=== PATIENT | male | born 1945 | race Caucasian/White ===

== ENCOUNTER → 2016-05-10 | Outpatient (CLI) | payer OTHER ==
[~2016-05-10] MED LIST: 'PARAFON FORTE500 M1 PO; ATIVAN PO; CHLORDIAZEPOXID25 M1 PO; CITALOPRAM HYDR20 MG PO; CLOTRIM ANTIFUNGAL1% T; Coumadin7.5 MG PO; D-1000 185 MG-11 TAB PO; DULCOLAX10 M1 RC; ENOXAPARIN80 MG/0.2 SC; EXELON4.6 MG/24 T; FENOFIBRATE145 M1 PO; HALOPERIDOL L2 MG/ML PEG; HYDROCODONE BIT1 T11 PO; HYDROXYZINE PAM25 M1 PO; Haldol Concen2 MG/ML IM; KEFLEX500 MG PO; KLOR-CON M1010 ME1 PO; LISINOPRIL20 MG PEG; LISINOPRIL20 MG PO; MELATONIN5 M1 PO; MELATONIN5 M7 PEG; METOPROLOL TART50 M1 PEG; METOPROLOL25 MG PO; MILK OF MA400 MG/5 M PO; MILK OF MA400 MG/52 PO; MIRALAX POWDER255 G1 PO; MOBIC7.5 MG PO; MOM30 M1 PO; MUCINEX ER600 MG PO; MULTI VITAMINS1 TAB PO; NAMENDA-5 PO; NAPROSYN500 MG PO; NAPROXEN375 MG PO; NATURE'S BLEND F1 MG PEG; NOVAPLUS LORA2 MG/ML IV; NYSTATIN1 EAC3 T; OMEPRAZOLE D/R20 MG PO; PROTONIX40 M1 PEG; QUETIAPINE FUM100 M3 PO; QUETIAPINE FUMA50 M1 PO; RISPERDAL0.5 MG PO; SENNA8.6 MG PO; THIAMINE HCL100 MG PO; TYLENOL325 M1 PO; VICODIN 500 MG-1 TAB PO; XARELTO15 M1 PEG; ZANTAC 300300 MG PO
== END | disposition home or self-care (01) ==
LOC: ORTHO 05:02
DX: M19.012 Primary osteoarthritis, left shoulder (principal); M25.512 Pain in left shoulder; Z91.81 History of falling

== ENCOUNTER → 2016-06-22 | Outpatient (CLI) | payer OTHER | END | disposition home or self-care (01) | LOC: RESCLI 09:34 | DX: I10 Essential (primary) hypertension (principal); F41.9 Anxiety disorder, unspecified; Z86.711 Personal history of pulmonary embolism ==

== ENCOUNTER → 2016-09-06 | Outpatient (CLI) | payer OTHER | END | disposition home or self-care (01) | LOC: RESCLI 02:19 | DX: I10 Essential (primary) hypertension (principal); F41.9 Anxiety disorder, unspecified; E78.5 Hyperlipidemia, unspecified; D64.9 Anemia, unspecified; Z88.6 Allergy status to analgesic agent; Z86.711 Personal history of pulmonary embolism ==

== ENCOUNTER → 2016-09-07 | Outpatient (CLI) | payer OTHER ==
[2016-09-07 09:29] LABS: BASO % 0.6 % (0.0-1.0); EOS # 0.1 10*3/uL (0.0-0.4); EOS % 2.4 % (1.0-4.0); HEMOGLOBIN 14.7 g/dl (14.0-18.0); LYMPH % 20.6 % (27.0-41.0); MEAN CELL VOLUME 96.4 fl (80.0-94.0); MEAN CORPUSCULAR HGB CONC 34.2 g/dl (33.0-37.0); MEAN PLATELET VOLUME 9.4 fl (9.6-12.3); MONO # 0.5 10*3/uL (0.1-1.0); MONO % 10.9 % (3.0-9.0); NEUT % 65.1 % (47.0-73.0); PLATELET COUNT AUTOMATED 166 10*3/uL (130-400); RED BLOOD COUNT 4.46 10*6/uL (4.50-5.90); RED CELL DISTRI WIDTH 13.3 % (0-14.5); WHITE BLOOD COUNT 4.7 10*3/uL (4.8-10.8)
[2016-09-07 09:52] LABS: BUN 8 mg/dl (7-24); CARBON DIOXIDE 23 mmol/L (21-32); CHLORIDE 109 mmol/L (98-107); EST GLOM FILT AFRICAN AMERICAN > 60 ml/min; GLUCOSE 93 mg/dL (65-99); POTASSIUM 3.9 mmol/L (3.5-5.1); SODIUM 142 mmol/L (136-145)
[2016-09-07 10:04] LABS: INTERNATIONAL NORM RATIO 0.9 (2.0-3.5); PROTHROMBIN TIME 9.3 SECONDS (9.0-12.4)
== END | disposition home or self-care (01) ==
LOC: LAB 08:50
PROVIDERS: Hospitalist
DX: Z01.818 Encounter for other preprocedural examination (principal); I10 Essential (primary) hypertension; F41.9 Anxiety disorder, unspecified; Z79.899 Other long term (current) drug therapy; Z86.711 Personal history of pulmonary embolism

== ENCOUNTER → 2016-09-16 | Day surgery (SDC) | payer OTHER ==
[2016-09-16] VITALS (12 sets, daily range): BP systolic 125–173; BP diastolic 71–94
== END | disposition home or self-care (01) ==
LOC: SDC 03:09
DX: Z45.2 Encounter for adjustment and management of vascular access device (principal); I10 Essential (primary) hypertension; F10.239 Alcohol dependence with withdrawal, unspecified; Z86.718 Personal history of other venous thrombosis and embolism; Z86.711 Personal history of pulmonary embolism; E78.5 Hyperlipidemia, unspecified; F06.31 Mood disorder due to known physiological condition with depressive features; G47.00 Insomnia, unspecified; Z88.8 Allergy status to other drugs, medicaments and biological substances; Z79.899 Other long term (current) drug therapy; Z79.84 Long term (current) use of oral hypoglycemic drugs; F41.9 Anxiety disorder, unspecified; K21.9 Gastro-esophageal reflux disease without esophagitis; D64.89 Other specified anemias; Z86.14 Personal history of Methicillin resistant Staphylococcus aureus infection; Z87.891 Personal history of nicotine dependence

== ENCOUNTER 2017-04-08 10:09 | Emergency (ER) | payer OTHER ==
[~2017-04-08] VITALS: Ht 180.3 cm; Wt 95.3 kg
[2017-04-08 11:19] LABS: BASO % 0.7 % (0.0-1.0); EOS # 0.1 10*3/uL (0.0-0.4); EOS % 2.6 % (1.0-4.0); HEMATOCRIT 50.3 % (42.0-52.0); HEMOGLOBIN 16.9 g/dl (14.0-18.0); LYMPH # 1.1 10*3/uL (1.3-4.4); LYMPH % 19.6 % (27.0-41.0); MEAN CELL VOLUME 97.5 fl (80.0-94.0); MEAN CORPUSCULAR HGB 32.8 pg (27.0-31.0); MEAN CORPUSCULAR HGB CONC 33.6 g/dl (33.0-37.0); MEAN PLATELET VOLUME 9.5 fl (9.6-12.3); MONO # 0.6 10*3/uL (0.1-1.0); MONO % 11.4 % (3.0-9.0); NEUT # 3.5 10*3/uL (2.3-7.9); NEUT % 65.3 % (47.0-73.0); PLATELET COUNT AUTOMATED 201 10*3/uL (130-400); RED BLOOD COUNT 5.16 10*6/uL (4.50-5.90); WHITE BLOOD COUNT 5.4 10*3/uL (4.8-10.8)
[2017-04-08 11:29] LABS: INTERNATIONAL NORM RATIO 0.9 (2.0-3.5)
[2017-04-08 11:35] LABS: ALBUMIN 4.2 gm/dl (3.1-4.5); ALKALINE PHOSPHATASE 87 U/L (45-117); BUN 16 mg/dl (7-24); CHLORIDE 107 mmol/L (98-107); CREATININE 1.24 mg/dL (0.70-1.30); POTASSIUM 4.8 mmol/L (3.5-5.1); SGOT/AST 24 IU/L (3-35); SGPT/ALT 28 U/L (12-78); SODIUM 141 mmol/L (136-145); TOTAL PROTEIN 8.1 gm/dL (6.4-8.2)
[2017-04-08 11:39] LABS: BILIRUBIN 1+ (NEGATIVE); BLOOD NEGATIVE (NEGATIVE); CLARITY CLEAR (CLEAR); COLOR YELLOW (YELLOW); GLUCOSE NEGATIVE (NEGATIVE); KETONE TRACE (NEGATIVE); LEUKO ESTERASE NEGATIVE (NEGATIVE); NITRITE NEGATIVE (NEGATIVE); PH 5.5 (5.0-9.0); SPECIFIC GRAVITY 1.025 (1.005-1.030)
[2017-04-08 11:45] LABS: MUCOUS TRACE; RBC 0-2 rbc/hpf (0-2); WBC 0-2 wbc/hpf (0-5)
[2017-04-08 12:20] VITALS: BP 138/90
== END 2017-04-08 23:28 ==
LOC: ED 10:09
PROVIDERS: Emergency Medicine
DX: R41.0 Disorientation, unspecified (principal); E78.5 Hyperlipidemia, unspecified; K21.9 Gastro-esophageal reflux disease without esophagitis; I10 Essential (primary) hypertension; Z86.711 Personal history of pulmonary embolism; Z98.890 Other specified postprocedural states; Z86.718 Personal history of other venous thrombosis and embolism; Z79.899 Other long term (current) drug therapy

== ENCOUNTER → 2017-04-11 | Outpatient (CLI) | payer OTHER ==
[2017-04-11 11:00] LABS: ALBUMIN 3.9 gm/dl (3.1-4.5); ALKALINE PHOSPHATASE 71 U/L (45-117); BUN 10 mg/dl (7-24); CHLORIDE 105 mmol/L (98-107); CREATININE 1.07 mg/dL (0.70-1.30); POTASSIUM 4.2 mmol/L (3.5-5.1); SGOT/AST 25 IU/L (3-35); SGPT/ALT 31 U/L (12-78); SODIUM 138 mmol/L (136-145); TOTAL PROTEIN 7.7 gm/dL (6.4-8.2)
== END | disposition home or self-care (01) ==
LOC: LAB 10:05
DX: I10 Essential (primary) hypertension (principal); G91.9 Hydrocephalus, unspecified; R41.0 Disorientation, unspecified

== ENCOUNTER 2018-03-10 16:56 | Inpatient (IN) | payer OTHER ==
[~2018-03-10] VITALS: Ht 180.3 cm; Wt 97.5 kg
--- NOTE | ~2018-03-10 | PR ---
[place], [place] PROGRESS NOTE NAME: SIDRA SANCHEZ UNIT #: [id number] ROOM: 315 DOCTOR: ISIAH HESS CNP BIRTHDATE: [birth year] DOS: 03/19/2018 CHIEF COMPLAINT: "I'm doing good." SUMMARY OF VISIT: The patient was interviewed as he sat in the dining room, eating his lunch. He engaged readily in conversation with me. He reports that his appetite has been good and that he has been sleeping well. He denies feeling anxious or agitated. Staff reports that the patient has been pleasant and cooperative for the most part. He does become irritable with his peers at times. Staff reports that he does continue to display some confusion at times. MENTAL STATUS EXAMINATION: The patient is alert and oriented to person and place. He was pleasant and cooperative with me. No heather or hypomania noted. No delusions or paranoia noted. No psychotic symptoms noted. No auditory or visual hallucinations noted. Mood was calm. Affect congruent with mood. No lethargy noted. PLAN: Continue the patient's medications as prescribed. He appears to be tolerating them without any side effects. Continue to encourage the patient to engage in individual and gutierrez milieu activity. Continue fall and safety precautions. Plan to return the patient to the least restrictive environment once considered psychiatrically stable. Isiah Hess CNP CM:PNTRANS [phone] 0 ISIAH HESS CNP 03/20/18210 interface
--- NOTE | ~2018-03-10 | PR ---
[place], [place] PROGRESS NOTE NAME: [id number] UNIT #: [id number] ROOM: 315 DOCTOR: JAGUAR FERNANDEZ MD BIRTHDATE: [birth year] DOS: 03/21/2018 CHIEF COMPLAINT: "I am okay, that sounds like a good plan to me. SUMMARY OF THE VISIT: The patient was interviewed as he was sitting in the dining area, eating his breakfast. He stopped and engaged in pleasant conversation. He noted no issues and states he is fine waiting until in order to leave directly from here to go to see the neurosurgeon in [place]. Nurses report, however, as the day progresses, he does get somewhat antsy and is somewhat exit seeking and has made motion towards the door. He does respond to firm redirection. MENTAL STATUS: He is alert and oriented with significant time gaps. Mood is fairly euthymic. Affect appropriate. There is no heather, hypomania or psychosis. Short term memory continues to have significant gaps. PLAN: I will maintain his current psychotropic regimen that includes Exelon patch, which is maximized out at 13.3 mg daily and Namenda at 10 mg twice daily. We will continue to engage in individual and gutierrez milieu activity, returning to the least restrictive environment when psychiatrically stable. JAGUAR FERNANDEZ MD CM:PNTRANS [id number] JAGUAR FERNANDEZ MD 03/21/18 1031 interface
--- NOTE | ~2018-03-10 | PR ---
[place], [place] PROGRESS NOTE NAME: [id number] UNIT #: [id number] ROOM: 315 DOCTOR: PHD ROMMEL MANZANARES BIRTHDATE: [birth year] DOS: 03/14/2018 I met with the patient to follow up to determine the necessity of guardianship versus power of claims attorney. The patient appears to be less confused than he was yesterday. He was oriented to person, place and generally to time. He was able to name the president and current events he had recently read in the newspaper. His mood was stable and affect was tearful at times. He denied suicidal or homicidal ideation. Dr. Thiago Barlow and the patient's close friend, Tony were present and discussed the need to establish financial power of claims attorney and healthcare power of claims attorney. The patient is agreeable to have his close friend, Tony, be his financial power of claims attorney and his cousin, Madhu, be his healthcare power of claims attorney, and the patient appears to be competent to make this decision at this time. He will follow up with [facility] neurosurgeon, Dr. Henderson to adjust his shunt for normal pressure hydrocephalus next week. After he had his shunt adjusted in the past, he demonstrated significant cognitive improvement. Magdalena Manzanares, PhD CM:PNTRANS [phone] PHD ROMMEL MANZANARES 03/15/18 0422 interface
--- NOTE | ~2018-03-10 | PR ---
[place], [place] PROGRESS NOTE NAME: [facility]Z [id number] UNIT #: [id number] ROOM: 315 DOCTOR: JAGUAR FERNANDEZ MD BIRTHDATE: [birth year] DOS: 03/22/2018 CHIEF COMPLAINT: "Good morning." SUMMARY OF THE VISIT: The patient was interviewed as he was finishing his breakfast. He engaged readily in conversation. He was bright and pleasant. There was no agitation or aggression. I did reiterate him the plan was to discharge him tomorrow morning so that he can go to [facility] to see the neurosurgeon to evaluate his DATABASE DESIGN ANALYST shunt for his normal pressure hydrocephalus. He nodded in approval. Nurses report some episodes of worsening confusion and exit seeking, but he is for the most part redirectable. MENTAL STATUS: He is alert and oriented with time gaps. Mood does seem to be strongly trending towards euthymia. Affect is more appropriate. There is no symptom suggestive of hypomania or heather. There are no gross psychotic symptoms. He does have gaps in short term memory. PLAN: I will maintain his current psychotropic regimen. The plan as listed above is to discharge tomorrow to go to [facility] to see the neurosurgeon to evaluate his DATABASE DESIGN ANALYST shunt and determine further treatment options if needed. JAGUAR FERNANDEZ MD CM:PNTRANS [phone] JAGUAR FERNANDEZ MD 03/22/18 1402 interface
--- NOTE | ~2018-03-10 | CON ---
[place], [place] REPORT OF CONSULTATION NAME: [facility]IDRA SANCHEZ [facility] [id number] UNIT #: [id number] ROOM: 315 DOCTOR: PHD ROMMEL MANZANARES BIRTHDATE: [birth year] DOS: 03/13/2018 HISTORY OF PRESENT ILLNESS: The patient is a 72-year-old male referred by Dr. Farr for competency evaluation. The patient is presently on the [facility] at [facility]. The patient lives alone, is and has children with whom he has little contact. He is retired and has a history of alcohol abuse. He was also found to have positive drug screen for cannabis on admission. The patient is a poor historian. PAST MEDICAL HISTORY: Alcohol abuse, DVT, dyslipidemia, GERD, hypertension, hydrocephalus, hypokalemia, anemia, metabolic encephalopathy, pulmonary embolism. MEDICATIONS: Remeron, Namenda, Exelon, Flonase, Zyrtec, vitamin D, Geodon, Tylenol, Ativan. PHYSICAL EXAMINATION: NEUROLOGIC: The patient was awake, alert and oriented to person. He stated the year was 2014. The patient has a history of normal pressure hydrocephalus with shunt placement after he was treated for NPH in the past. His cognition improved greatly, although he still struggles with his short-term memory. He lives alone and had home health care set up through [facility], although the patient spent most of his time in [place] with his significant other and he subsequently had not received any services. When he spends time with his girlfriend, he tends to drink more frequently. He has a history of drinking at least 12 pack of beer with at least a pint of vodka every day. His current alcohol consumption is not known at this time. He does not have a healthcare power of assistant prosecuting attorney. The patient was pleasant and cooperative and appeared confused, given his history of normal pressure hydrocephalus and acute episodes of confusion. Determination of guardianship versus power of assistant prosecuting attorney may be deferred to allow for continued treatment. Discussed the case with Dr. Tony Barlow as well as the patient's close friend who has been involved with the patient's care. The patient has a cousin in [place] who may be able to serve as a power of assistant prosecuting attorney should that would be an appropriate option for the patient. DIAGNOSIS: Unspecified neurocognitive disorder. PLAN: I will continue to follow the patient to assess the need for guardianship versus power of assistant prosecuting attorney. [place], [place] REPORT OF CONSULTATION NAME: KENDRICK SANCHEZKash Contreras UNIT #: [id number] ROOM: [facility] DOCTOR: RUTH, PHD ROMMEL BIRTHDATE: [birth year] Magdalena Manzanares, PhD CM:CONSTR:REPORT OF CONSULTATION 1725 03/14/18 0459 interface
--- NOTE | ~2018-03-10 | PR ---
[place], [place] PROGRESS NOTE NAME: SIDRA SANCHEZ UNIT #: [id number] ROOM: 315 DOCTOR: JAGUAR FERNANDEZ MD BIRTHDATE: [birth year] DOS: 03/14/2018 INTERVAL NOTE CHIEF COMPLAINT: "Yeah, I'm feeling a little better." SUMMARY OF THE VISIT: The patient was interviewed as he was sitting finishing his breakfast. He engaged readily in superficial conversation. He could not tell me how long he had been here nor could he remember what he had eaten, although he did remember having a conversation with Dr. Barlow and myself yesterday. He is rather perplexed and bewildered at times, but for the most part pleasantly so. He voiced no complaint. MENTAL STATUS EXAMINATION: He is alert and oriented to person, possibly place, not to time. Mood does seem to be trending towards euthymia. Affect is more appropriate. There is no heather, hypomania or psychosis. Short-term memory continues to be problematic. PLAN: I will maximize out the dose of Exelon patch, bringing it to 13.3 mg a day, maintain his current psychotropic regimens, engage in individual and gutierrez milieu activity, returning to the least restrictive environment when psychiatrically stable. JAGUAR FERNANDEZ MD CM:PNTRANS [id number] JAGUAR FERNANDEZ MD 03/15/18 0051 interface
--- NOTE | ~2018-03-10 | PR ---
[place], [place] PROGRESS NOTE NAME: SIDRA SANCHEZ UNIT #: [id number] ROOM: 315 DOCTOR: JAGUAR FERNANDEZ MD BIRTHDATE: [birth year] DOS: 03/13/2018 CHIEF COMPLAINT: "I have a horrible cold." SUMMARY OF THE VISIT: The patient was interviewed as he was lying in bed. He was awake and did engage in conversation. Some of it rather disjointed and fragmented at times nonsensical responses. There does seem to be somewhat of an air of depression about him that could be contributing to his cognitive decline. MENTAL STATUS: He is alert and oriented to person, possibly place, not time. Mood does seem to be somewhat down and depressed, mildly flat and blunted. There is no heather or hypomania. There is no gross psychosis. Short term memory is poor. PLAN: I will go ahead and maximize out the dose of Namenda bringing it to 10 mg b.i.d. Maintain current dose of Exelon patch. I will add Remeron 15 mg at bedtime in an effort to combat any depressive symptomatology and monitor for risk, benefits, engage in individual and gutierrez milieu activity, returning to the least restrictive environment when psychiatrically stable. JAGUAR FERNANDEZ MD CM:PNTRANS [id number] JAGUAR FERNANDEZ MD 03/13/18 1221 interface
--- NOTE | ~2018-03-10 | PR ---
[place], [place] PROGRESS NOTE NAME: [id number] UNIT #: [id number] ROOM: 315 DOCTOR: JAGUAR FERNANDEZ MD BIRTHDATE: [birth year] DOS: 03/20/2018 CHIEF COMPLAINT: "Thank you for stopping." SUMMARY OF THE VISIT: The patient was interviewed as he was eating his breakfast. He stopped, shook my hand and engaged readily in conversation. I did report to him what the plan was and that he would be discharged soon and that Tony Barlow along with his other friend were going to accompany him to [place] to see the neurosurgeon. He nodded in approval and thanked me once again. He was not agitated or aggressive. He was pleasant and cooperative. He was tolerating the current medication regimen well. MENTAL STATUS: He is alert and oriented with significant time gaps. Mood does seem to be strongly trending towards euthymia. Affect is more appropriate. There is no heather, hypomania or psychosis. Short term memory continues to have gaps, otherwise he is intact. PLAN: I will maintain his current psychotropic regimen, continue to engage in individual and gutierrez milieu activity with the ultimate plan to return to the least restrictive environment when psychiatrically stable. JAGUAR FERNANDEZ MD CM:PNTRANS [phone] JAGUAR FERNANDEZ MD 03/20/18 1232 interface
--- NOTE | ~2018-03-10 | PR ---
[place], [place] PROGRESS NOTE NAME: [facility]ANC[facility]Z [id number] UNIT #: [id number] ROOM: 315 DOCTOR: JAGUAR FERNANDEZ MD BIRTHDATE: [birth year] DOS: 03/16/2018 INTERVAL NOTE CHIEF COMPLAINT: "I am waiting to go to [place], so I can see the neurosurgeon." SUMMARY OF THE VISIT: The patient was interviewed as he was sitting eating his breakfast. He stopped and engaged readily in conversation. He remains pleasantly confused. He did have some issues with sleep last night. MENTAL STATUS: He is alert and oriented to person, place, but not necessarily time. Mood does seem to be still somewhat depressed and he is flat and blunted, but he does brighten upon approach. There is no hypomania or heather. There is no gross psychosis. Short-term memory has gaps. PLAN: I will go ahead and increase his Remeron from 15 to 30 mg at bedtime. Continue to monitor for risks and benefits, continue to engage in individual and gutierrez milieu activity, return then to the least restrictive environment when psychiatrically stable. JAGUAR FERNANDEZ MD CM:PNTRANS [id number] JAGUAR FERNANDEZ MD 03/16/18 1200 interface
--- NOTE | ~2018-03-10 | DS ---
[place], [place] DISCHARGE SUMMARY NAME: SIDRA SANCHEZ UNIT #: [id number] ROOM: 315 DOCTOR: JAGUAR FERNANDEZ MD BIRTHDATE: [birth year] DOS: 03/23/2018 CHIEF COMPLAINT: "I am not going through all those questions again." HISTORY OF PRESENT ILLNESS: This is a 72-year-old white male who is admitted to the [facility] due to increased psychosis and confusion. The patient was found wandering around the hospital the day prior to his admission. He was sent to the Emergency Room by one of the residents and they found him to be increasingly confused and disjointed. He was not able to answer simple questions. He was not attending to his ADLs and it was felt that an inpatient stabilization was warranted at this time. SUMMARY OF HOSPITAL COURSE: The patient was admitted to the unit where he was started on the combination of Exelon and Namenda in order to impact positively on his mental status additionally because he had some depressive symptomatology with poor sleep and appetite and poor ADLs. He was started on Remeron 15 mg at bedtime, which was later increased to 30. It came to be known that the patient who does have normal pressure hydrocephalus and does have a RESTAURANT AREA MANAGER shunt in place, had not gone for followup for the last year and a half. Given the fact that he had some gait issues, increased confusion and incontinence, it was felt that more than likely his shunt has been malfunctioning and not working right, so his neurosurgeon at [facility] in [place] was contacted and the patient was discharged from the hospital to have that appointment with the neurosurgeon. MENTAL STATUS: At the time of discharge, the patient is alert and oriented to person, place, but not time. Mood was strongly trending towards euthymia. Affect was much more appropriate. There was no heather, hypomania or psychosis. He did have short term memory gaps. FINAL DIAGNOSES: Major depression, recurrent; and dementia, not otherwise specified. PLAN: His prescriptions have been E-scribed to [facility]. At the time of discharge, he was psychiatrically and medically stable. [place], [place] DISCHARGE SUMMARY NAME: SIDRA SANCHEZ UNIT #: [id number] ROOM: 315 DOCTOR: JAGUAR FERNANDEZ MDTE: [birth year] JAGUAR FERNANDEZ MD CM:THOMAS 11 JAGUAR FERNANDEZ MD 03/23/18 131 interface
--- NOTE | ~2018-03-10 | PR ---
[place], [place] PROGRESS NOTE NAME: [id number] UNIT #: [id number] ROOM: 315 DOCTOR: ISIAH HESS CNP BIRTHDATE: [birth year] DOS: 03/18/2018 CHIEF COMPLAINT: "I have a shunt in my head that moved." SUMMARY OF THE VISIT: The patient was interviewed as he sat in the dining room after breakfast. He engaged readily in conversation with me. He reports that he is to go to [place] sometime next week for reevaluation of his shunt. He reports that he has been sleeping well and that his appetite has been good. The staff reports that the patient has had some confusion and confabulates at times. MENTAL STATUS EXAMINATION: The patient was alert and oriented to person and place; however, he was not oriented to time. He was pleasant and cooperative with me. No heather or hypomania noted. No delusions or paranoia noted. No psychotic symptoms noted. No auditory or visual hallucinations noted. His mood appeared to be euthymic and affect congruent with mood. No agitation or aggression noted. PLAN: We will continue the patient's medications as prescribed at this time as he seems to be tolerating medications without any side effects. We will continue to encourage the patient to engage in individual and gutierrez milieu activity. Continue fall and safety precautions. Plan to return the patient to the least restrictive environment once he is considered psychiatrically stable. Isiah Hess CNP CM:PNTRANS 31 [phone] ISIAH HESS CNP 03/18/181947 interface
--- NOTE | ~2018-03-10 | PR ---
[place], [place] PROGRESS NOTE NAME: SIDRA SANCHEZ UNIT #: [id number] ROOM: 315 DOCTOR: JAGAUR FERNANDEZ MD BIRTHDATE: [birth year] DOS: 03/15/2018 CHIEF COMPLAINT: "I am feeling better, I just need this shunt checked." SUMMARY OF THE VISIT: The patient was interviewed after he had already eaten his breakfast. He engaged readily in conversation. He was fairly bright and pleasant upon approach. He did voice concern about his shunt and is worried that there might be something wrong with it that is also leading to some of his confusion. Otherwise, he was bright and pleasant. He did agree to sign in stating he wants to get well and wants to get the help he needs to continue to be happy. MENTAL STATUS: He is alert and oriented with time gaps. Mood does seem to be trending towards euthymia. Affect is more appropriate. There is no heather, hypomania or psychosis. Short term memory continues to be problematic. PLAN: I will maintain his current psychotropic regimen, continue to engage in individual and gutierrez milieu activity, returning to the least restrictive environment when psychiatrically stable. JAGUAR FERNANDEZ MD CM:PNTRANS 1018 1154 JAGUAR FERNANDEZ MD 03/15/18 1155 interface
[2018-03-10 17:00] VITALS: BP 160/90
[2018-03-10 17:34] LABS: BILIRUBIN NEGATIVE (NEGATIVE); BLOOD NEGATIVE (NEGATIVE); CLARITY CLEAR (CLEAR); COLOR YELLOW (YELLOW); GLUCOSE NEGATIVE (NEGATIVE); KETONE NEGATIVE (NEGATIVE); LEUKO ESTERASE NEGATIVE (NEGATIVE); NITRITE NEGATIVE (NEGATIVE); SPECIFIC GRAVITY 1.025 (1.005-1.030)
[2018-03-10 17:41] LABS: BASO % 0.5 % (0.0-1.0); EOS # 0.1 10*3/uL (0.0-0.4); EOS % 1.2 % (1.0-4.0); HEMATOCRIT 46.6 % (42.0-52.0); HEMOGLOBIN 15.7 g/dl (14.0-18.0); MEAN CELL VOLUME 99.1 fl (80.0-94.0); MEAN CORPUSCULAR HGB 33.4 pg (27.0-31.0); MEAN CORPUSCULAR HGB CONC 33.7 g/dl (33.0-37.0); MEAN PLATELET VOLUME 9.9 fl (9.6-12.3); MONO % 11.3 % (3.0-9.0); NEUT # 6.3 10*3/uL (2.3-7.9); NEUT % 74.6 % (47.0-73.0); PLATELET COUNT AUTOMATED 184 10*3/uL (130-400); RED CELL DISTRI WIDTH 13.1 % (0-14.5); WHITE BLOOD COUNT 8.4 10*3/uL (4.8-10.8)
[2018-03-10 17:43] LABS: URINE AMPHETAMINES < 1000 (1000ng/ml); URINE BARBITURATES < 200 (200ng/ml); URINE BENZODIAZEPINES < 200 (200ng/ml); URINE CANNABINOIDS (THC) > 50 (50ng/ml); URINE COCAINE < 300 (300ng/ml); URINE METHADONE < 300 (300ng/ml); URINE OPIATES < 300 (300ng/ml)
[2018-03-10 17:49] LABS: URINE PHENCYCLIDINE < 25 (25ng/ml)
[2018-03-10 17:58] LABS: ALBUMIN 3.5 gm/dl (3.1-4.5); ALKALINE PHOSPHATASE 80 U/L (45-117); BUN 11 mg/dl (7-24); CHLORIDE 107 mmol/L (98-107); CREATININE 1.09 mg/dL (0.70-1.30); POTASSIUM 3.7 mmol/L (3.5-5.1); SGOT/AST 16 IU/L (3-35); SGPT/ALT 24 U/L (12-78); SODIUM 141 mmol/L (136-145); TOTAL PROTEIN 7.5 gm/dL (6.4-8.2)
[2018-03-10 18:00] LABS: ETHYL ALCOHOL < 3.0 mg/dl (<3)
[2018-03-10 18:01] LABS: BACTERIA TRACE; EPITHELIAL CELLS 0-2; RBC 0-2 rbc/hpf (0-2); WBC 0-2 wbc/hpf (0-5)
[2018-03-10 19:30] VITALS: BP 142/82
[2018-03-10 21:30] VITALS: BP 147/85
[2018-03-10 23:05] VITALS: BP 135/94
[2018-03-10 23:44] VITALS: BP 135/94
[2018-03-11 07:29] LABS: ALBUMIN 3.1 gm/dl (3.1-4.5); BUN 9 mg/dl (7-24); CHLORIDE 106 mmol/L (98-107); POTASSIUM 3.6 mmol/L (3.5-5.1); SGPT/ALT 17 U/L (12-78); SODIUM 141 mmol/L (136-145)
[2018-03-11 07:41] LABS: ALKALINE PHOSPHATASE 70 U/L (45-117); CHOLESTEROL 170 mg/dL (<200); HDL CHOLESTEROL 34 mg/dl (40-60); LDL CHOLESTEROL 109 mg/dL (9-159); SGOT/AST 7 IU/L (3-35); TRIGLYCERIDES 135 mg/dl (<150); VLDL CHOLESTEROL 27 mg/dL (6-40)
[2018-03-11 08:00] VITALS: BP 125/69
[2018-03-11 08:08] LABS: VITAMIN D, 25-HYDROXY 11.5 ng/mL (30-100)
[2018-03-11 20:15] VITALS: BP 136/65
[2018-03-12 07:30] VITALS: BP 129/70
[2018-03-12 19:56] VITALS: BP 148/76
[2018-03-13 07:59] VITALS: BP 133/75
[2018-03-13 20:08] VITALS: BP 112/76
[2018-03-14 07:57] VITALS: BP 121/75
[2018-03-14 20:00] VITALS: BP 130/83
[2018-03-15 08:31] VITALS: BP 114/75
[2018-03-15 08:52] VITALS: BP 114/75
[2018-03-15 08:53] VITALS: BP 114/75
[2018-03-15 19:51] VITALS: BP 131/76
[2018-03-16 07:20] VITALS: BP 135/66
[2018-03-16 19:26] VITALS: BP 129/67
[2018-03-17 07:19] VITALS: BP 126/78
[2018-03-17 20:00] VITALS: BP 128/76
[2018-03-18 08:20] VITALS: BP 119/69
[2018-03-18 20:00] VITALS: BP 127/74
[2018-03-19 08:08] VITALS: BP 133/68
[2018-03-19 20:00] VITALS: BP 118/74
[2018-03-20 07:02] VITALS: BP 121/66
[2018-03-20 20:00] VITALS: BP 150/77
[2018-03-21 07:47] VITALS: BP 142/70
[2018-03-21 19:51] VITALS: BP 150/60
[2018-03-22 07:45] VITALS: BP 133/75
[2018-03-22 20:00] VITALS: BP 156/84
[2018-03-23 08:14] VITALS: BP 113/81
[2018-03-23] MEDS ORDERED: EXELON13.3 MG/21 T (08:49)
[2018-03-23] MEDS ORDERED: VITAMIN D5000 UNI1 PO (08:49)
[2018-03-23] MEDS ORDERED: MIRTAZAPINE30 M2 PO (08:49)
[2018-03-23] MEDS ORDERED: MEMANTINE HCL10 MG PO (08:49)
== END 2018-03-23 09:32 | disposition home or self-care (01) | DRG 885 ==
LOC: ED 16:56 → 3N 22:42
PROVIDERS: Emergency Medicine; Registered Nurse; ADMIT Psychiatry & Neurology Psychiatry
DX: F23 Brief psychotic disorder (principal); F33.9 Major depressive disorder, recurrent, unspecified; G91.2 (Idiopathic) normal pressure hydrocephalus; F03.90 Unspecified dementia, unspecified severity, without behavioral disturbance, psychotic disturbance, mood disturbance, and anxiety; R41.9 Unspecified symptoms and signs involving cognitive functions and awareness; F12.10 Cannabis abuse, uncomplicated; E78.5 Hyperlipidemia, unspecified; K21.9 Gastro-esophageal reflux disease without esophagitis; I10 Essential (primary) hypertension; J40 Bronchitis, not specified as acute or chronic; D72.810 Lymphocytopenia; D72.9 Disorder of white blood cells, unspecified; D53.9 Nutritional anemia, unspecified; F10.21 Alcohol dependence, in remission; E55.9 Vitamin D deficiency, unspecified; Z86.718 Personal history of other venous thrombosis and embolism; Z86.711 Personal history of pulmonary embolism; Z81.8 Family history of other mental and behavioral disorders; Z79.899 Other long term (current) drug therapy; Z93.1 Gastrostomy status

== ENCOUNTER 2018-04-07 08:18 | Emergency (ER) | payer OTHER ==
[~2018-04-07] VITALS: Ht 177.8 cm; Wt 90.7 kg
--- NOTE | ~2018-04-07 | EKG ---
[place], [place] ELECTROCARDIOGRAM REPORT NAME: SIDRA SANCHEZ UNIT #: [id number] ROOM: DOCTOR: EPIPHANY DRAFT REPORT BIRTHDATE: [birth year] [facility] Test Date: 2018-04-07 Test Time: 08:53:13 Pat Name: SIDRA SANCHEZ Department: Room: Gender: Warehouse And Receiving Supervisor: : 1945 Requested By: ANNALISA ELLSWORTH Order Number: [id number] Reading MD: Nolberto Delgado MD Measurements Intervals [place] Rate: 90 P: 22 [place]: 148 QRS: 2 QRSD: 89 T: -25 QT: 350 QTc: 498 Interpretive Statements Sinus rhythm Supraventricular bigeminy Borderline T abnormalities, diffuse leads No previous ECG available for comparison Electronically Signed On 04-07-2018 16:17:37 PST by Nolberto Delgado MD CM:EKGRPT:ELECTROCARDIOGRAM REPORT [id number] ANNALISA ELLSWORTH MD EPIPHMONIKA DRAFT REPORT ANNALISA ELLSWORTH MD
[~2018-04-07 08:18] MED LIST changes: +EXELON13.3 MG/21 T; +MEMANTINE HCL10 MG PO; +MIRTAZAPINE30 M2 PO; +VITAMIN D5000 UNI1 PO
[2018-04-07 08:55] LABS: BASO % 0.2 % (0.0-1.0); EOS # 0.1 10*3/uL (0.0-0.4); EOS % 2.4 % (1.0-4.0); HEMATOCRIT 47.4 % (42.0-52.0); LYMPH # 0.9 10*3/uL (1.3-4.4); LYMPH % 21.7 % (27.0-41.0); MEAN CORPUSCULAR HGB 32.4 pg (27.0-31.0); MEAN CORPUSCULAR HGB CONC 33.8 g/dl (33.0-37.0); MEAN PLATELET VOLUME 9.8 fl (9.6-12.3); MONO # 0.4 10*3/uL (0.1-1.0); MONO % 8.3 % (3.0-9.0); NEUT # 2.8 10*3/uL (2.3-7.9); NEUT % 67.2 % (47.0-73.0); PLATELET COUNT AUTOMATED 180 10*3/uL (130-400); RED BLOOD COUNT 4.94 10*6/uL (4.50-5.90); RED CELL DISTRI WIDTH 13.2 % (0-14.5); WHITE BLOOD COUNT 4.2 10*3/uL (4.8-10.8)
[2018-04-07 09:11] LABS: ACT PARTIAL THROMBO TIME 23.9 SECONDS (20.8-31.5); INTERNATIONAL NORM RATIO 0.9 (2.0-3.5)
[2018-04-07 09:18] LABS: ALBUMIN 3.4 gm/dl (3.1-4.5); ALKALINE PHOSPHATASE 73 U/L (45-117); BUN 9 mg/dl (7-24); CHLORIDE 109 mmol/L (98-107); CREATININE 1.02 mg/dL (0.70-1.30); ETHYL ALCOHOL < 3.0 mg/dl (<3); LIPASE 94 U/L (73-393); POTASSIUM 3.7 mmol/L (3.5-5.1); SGOT/AST 19 IU/L (3-35); SGPT/ALT 23 U/L (12-78); SODIUM 142 mmol/L (136-145); TOTAL PROTEIN 7.2 gm/dL (6.4-8.2); TROPONIN I 0.019 ng/ml (<0.045)
[2018-04-07 10:30] LABS: BILIRUBIN NEGATIVE (NEGATIVE); BLOOD NEGATIVE (NEGATIVE); CLARITY CLEAR (CLEAR); COLOR YELLOW (YELLOW); GLUCOSE NEGATIVE (NEGATIVE); KETONE NEGATIVE (NEGATIVE); LEUKO ESTERASE NEGATIVE (NEGATIVE); NITRITE NEGATIVE (NEGATIVE)
[2018-04-07 10:38] LABS: URINE AMPHETAMINES < 1000 (1000ng/ml); URINE BARBITURATES < 200 (200ng/ml); URINE BENZODIAZEPINES < 200 (200ng/ml); URINE CANNABINOIDS (THC) < 50 (50ng/ml); URINE COCAINE < 300 (300ng/ml); URINE METHADONE < 300 (300ng/ml); URINE OPIATES < 300 (300ng/ml)
[2018-04-07 10:39] LABS: URINE PHENCYCLIDINE < 25 (25ng/ml)
[2018-04-07 11:01] LABS: BACTERIA TRACE; MUCOUS 2+
[2018-04-07 11:31] VITALS: BP 136/68
[2018-07-14] MEDS ORDERED: NAPROSYN500 MG PO (15:49)
[2018-08-20] MEDS ORDERED: NAPROSYN500 MG PO ×2 (23:03)
== END 2018-04-07 11:27 | disposition home or self-care (01) ==
LOC: ED 08:18
PROVIDERS: Emergency Medicine
DX: R41.0 Disorientation, unspecified (principal); R10.31 Right lower quadrant pain; E78.5 Hyperlipidemia, unspecified; K21.9 Gastro-esophageal reflux disease without esophagitis; I10 Essential (primary) hypertension; Z93.1 Gastrostomy status; Z79.899 Other long term (current) drug therapy

== ENCOUNTER 2018-08-24 10:00 | Emergency (ER) | payer OTHER ==
[~2018-08-24] VITALS: Ht 185.4 cm
[2018-08-24 10:00] VITALS: BP 121/67
[2018-08-24 11:52] LABS: BILIRUBIN NEGATIVE (NEGATIVE); BLOOD NEGATIVE (NEGATIVE); CLARITY CLEAR (CLEAR); COLOR YELLOW (YELLOW); GLUCOSE NEGATIVE (NEGATIVE); KETONE NEGATIVE (NEGATIVE); LEUKO ESTERASE NEGATIVE (NEGATIVE); NITRITE NEGATIVE (NEGATIVE); SPECIFIC GRAVITY 1.025 (1.005-1.030)
[2018-08-24 11:54] LABS: BASO % 0.4 % (0.0-1.0); EOS # 0.1 10*3/uL (0.0-0.4); EOS % 1.1 % (1.0-4.0); HEMATOCRIT 44.6 % (42.0-52.0); HEMOGLOBIN 14.9 g/dl (14.0-18.0); LYMPH # 1.2 10*3/uL (1.3-4.4); LYMPH % 16.5 % (27.0-41.0); MEAN CELL VOLUME 96.5 fl (80.0-94.0); MEAN CORPUSCULAR HGB 32.3 pg (27.0-31.0); MEAN CORPUSCULAR HGB CONC 33.4 g/dl (33.0-37.0); MEAN PLATELET VOLUME 9.9 fl (9.6-12.3); MONO # 0.8 10*3/uL (0.1-1.0); NEUT % 70.9 % (47.0-73.0); PLATELET COUNT AUTOMATED 177 10*3/uL (130-400); RED BLOOD COUNT 4.62 10*6/uL (4.50-5.90); RED CELL DISTRI WIDTH 12.7 % (0-14.5)
[2018-08-24 12:01] LABS: EPITHELIAL CELLS 0-2; RBC 0-2 rbc/hpf (0-2); WBC 0-2 wbc/hpf (0-5)
[2018-08-24 12:09] LABS: ALBUMIN 3.9 gm/dl (3.1-4.5); ALKALINE PHOSPHATASE 87 U/L (45-117); BUN 25 mg/dl (7-24); CHLORIDE 105 mmol/L (98-107); CREATININE 1.08 mg/dL (0.70-1.30); SGOT/AST 21 IU/L (3-35); SGPT/ALT 29 U/L (12-78); SODIUM 138 mmol/L (136-145); TOTAL PROTEIN 7.6 gm/dL (6.4-8.2)
== END 2018-08-24 13:29 | disposition home or self-care (01) ==
LOC: ED 10:00
PROVIDERS: Physician Assistant
DX: F03.90 Unspecified dementia, unspecified severity, without behavioral disturbance, psychotic disturbance, mood disturbance, and anxiety (principal); R41.0 Disorientation, unspecified; F12.10 Cannabis abuse, uncomplicated; Z79.899 Other long term (current) drug therapy

== ENCOUNTER 2018-11-16 15:11 | Emergency (ER) | payer OTHER ==
[~2018-11-16] VITALS: Ht 152.4 cm; Wt 81.6 kg
[2018-11-16 15:13] VITALS: BP 123/58
== END 2018-11-16 17:23 | disposition home or self-care (01) ==
LOC: ED 15:11
DX: M25.572 Pain in left ankle and joints of left foot (principal); Z79.899 Other long term (current) drug therapy; Z60.2 Problems related to living alone; X58.XXXA Exposure to other specified factors, initial encounter; Y93.89 Activity, other specified; Y92.89 Other specified places as the place of occurrence of the external cause; Y99.8 Other external cause status

== ENCOUNTER 2019-01-04 10:56 | Inpatient (IN) | payer OTHER ==
[~2019-01-04] VITALS: Ht 180.3 cm; Wt 90.7 kg
[2019-01-04 11:04] VITALS: BP 131/58
[2019-01-04 11:20] LABS: BASO % 0.3 % (0.0-1.0); EOS # 0.2 10*3/uL (0.0-0.4); EOS % 2.9 % (1.0-4.0); HEMATOCRIT 42.6 % (42.0-52.0); HEMOGLOBIN 14.3 g/dl (14.0-18.0); LYMPH # 1.2 10*3/uL (1.3-4.4); LYMPH % 21.1 % (27.0-41.0); MEAN CELL VOLUME 94.5 fl (80.0-94.0); MEAN CORPUSCULAR HGB 31.7 pg (27.0-31.0); MEAN CORPUSCULAR HGB CONC 33.6 g/dl (33.0-37.0); MEAN PLATELET VOLUME 9.8 fl (9.6-12.3); MONO # 0.7 10*3/uL (0.1-1.0); MONO % 11.7 % (3.0-9.0); NEUT # 3.7 10*3/uL (2.3-7.9); NEUT % 63.7 % (47.0-73.0); PLATELET COUNT AUTOMATED 193 10*3/uL (130-400); RED BLOOD COUNT 4.51 10*6/uL (4.50-5.90); RED CELL DISTRI WIDTH 12.7 % (0-14.5); WHITE BLOOD COUNT 5.8 10*3/uL (4.8-10.8)
[2019-01-04 11:31] LABS: ACT PARTIAL THROMBO TIME 28.5 SECONDS (20.0-32.1); INTERNATIONAL NORM RATIO 0.9 (2.0-3.5)
[2019-01-04 11:36] LABS: ALBUMIN 3.2 gm/dl (3.1-4.5); ALKALINE PHOSPHATASE 89 U/L (45-117); BUN 17 mg/dl (7-24); CHLORIDE 112 mmol/L (98-107); CREATININE 1.14 mg/dL (0.70-1.30); LIPASE 105 U/L (73-393); POTASSIUM 3.6 mmol/L (3.5-5.1); SGOT/AST 16 IU/L (3-35); SGPT/ALT 21 U/L (12-78); SODIUM 141 mmol/L (136-145); TOTAL PROTEIN 7.2 gm/dL (6.4-8.2); TROPONIN I 0.017 ng/ml (<0.045)
[2019-01-04 11:38] LABS: ACETAMINOPHEN (TYLENOL) < 5.0 ug/ml (10-30); ETHYL ALCOHOL < 3.0 mg/dl (<3)
--- NOTE | 2019-01-04 12:03 | NUR ---
PT POSITIONED FOR COMFORT WITH SAFETY PRECAUTIONS INTACT AND CALL LIGHT WITHIN REACH.
[2019-01-04 12:47] VITALS: BP 117/59
[2019-01-04 13:02] LABS: BILIRUBIN NEGATIVE (NEGATIVE); BLOOD NEGATIVE (NEGATIVE); CLARITY CLEAR (CLEAR); COLOR YELLOW (YELLOW); GLUCOSE NEGATIVE (NEGATIVE); KETONE NEGATIVE (NEGATIVE); LEUKO ESTERASE NEGATIVE (NEGATIVE); NITRITE NEGATIVE (NEGATIVE); PH 5.5 (5.0-9.0); SPECIFIC GRAVITY 1.025 (1.005-1.030)
[2019-01-04 13:13] LABS: URINE AMPHETAMINES < 1000 (1000ng/ml); URINE BARBITURATES < 200 (200ng/ml); URINE BENZODIAZEPINES < 200 (200ng/ml); URINE CANNABINOIDS (THC) < 50 (50ng/ml); URINE COCAINE < 300 (300ng/ml); URINE METHADONE < 300 (300ng/ml); URINE OPIATES < 300 (300ng/ml)
[2019-01-04 13:17] LABS: BACTERIA 1+; MUCOUS 2+; WBC 0-2 wbc/hpf (0-5)
[2019-01-04 13:18] LABS: URINE PHENCYCLIDINE < 25 (25ng/ml)
--- NOTE | 2019-01-04 13:39 | NUR ---
pt provided a lunch tray and watching t.v. @ this time,call light within reach.
[2019-01-04 14:09] VITALS: BP 130/62
[2019-01-04 16:30] VITALS: BP 127/60
[2019-01-04 16:41] VITALS: BP 127/60
--- NOTE | 2019-01-04 17:29 | NUR ---
LAURASIDRA M a 73 year old M admitted via wheel chair from the EMERGENCY ROOM as a voluntary admission. Arrived on unit at 1620. ALLERGIES: NKA. Vital signs are: 98-61-20 127/60. The client signed the following forms with stated understanding: Authorization For The Release of Medical Information, Clothing List, Consent to Voluntary Admission and Hospitalization, Consent and Release Forms/Receipt of Rights, Acknowledgement of Advance Directive Information, Behavioral Health Consent Form, and Informed Consent of Medications. Admitted under the services of Dr. REBECCA PHOENIXJAGUAR. A search was conducted and hazardous articles were removed. Client was oriented to the unit. JOVI BENOIT PT COOPERATIVE WITH ASSESSMENT. BELONGINGS LOCKED UP IN LOCK BOX. STEADY GAIT.
[2019-01-04 20:00] VITALS: BP 146/56
--- NOTE | 2019-01-04 23:16 | NUR ---
24 HR chart check completed.
--- NOTE | 2019-01-04 23:27 | NUR ---
P-CONFUSION, IRRITABLE, I-PROVIDE EMOTIONAL SUPPORT, REDIRECT, REORIENT, MAINTAIN ELOPEMENT PRECAUTIONS, ADMINISTER MEDS, MONITOR SLEEP R-PT IS CONFUSED, ALERT TO PERSON ONLY, REORIENTATION INEFFECTIVE, BRIEFLY RESPONDS TO REDIRECTION. SHORT & FRIT MIXER MEMORY DEFICITS VERY NOTICABLE. NO ATTEMPTS MADE TO LEAVE THE UNIT BUT PT HAS WANDERED IN & OUT OF OTHER PTS ROOMS & REQUIRED DIRECTIVES SEVERAL TIMES. MOOD IS MOSTLY PLEASANT WITH LAUGHTER BUT DOES EXHIBIT IRRITABLE OVERTONES AT TIMES. REFUSED FLU SHOT & REFUSED HS TRINTILLIX. WANDERS HALLS FREQUENTLY & STATES HE NEVER SLEEPS GOOD AT ALL. P-CONTINUE TO MONITOR & PROVIDE PHYSICAL ASSISTANCE & EMOTIONAL SUPPORT
--- NOTE | 2019-01-05 00:49 | NUR ---
PT HAS REMAINED AWAKE. AMBULATING IN THE ROOT FREQUENTLY. RESTLESS. OFFERED & MEDICATED WITH ATIVAN 1 MG PO @ 4.
--- NOTE | 2019-01-05 04:33 | NUR ---
PT CONTINUES TO COME OUT OF HIS ROOM FREQUENTLY. HAS REMAINED AWAKE THE ENTIRE SHIFT. HAS BEEN OFFERED DIFFERENT TYPES OF RELAXATION OPTIONS, TV, MAGAZINES, BOOKS & HAS REFUSED ALL. PT APPEARS TO BE TIRED. CAME OUT OF HIS ROOM & STATED HE WAS LOOKING FOR "THE BABY THATS CRYING". REORIENTED BRIEFLY & THEN LAUGHS & WALKS AWAY.
[2019-01-05 07:24] LABS: ALBUMIN 3.1 gm/dl (3.1-4.5); ALKALINE PHOSPHATASE 75 U/L (45-117); BUN 14 mg/dl (7-24); CHLORIDE 110 mmol/L (98-107); CHOLESTEROL 177 mg/dL (<200); CREATININE 1.08 mg/dL (0.70-1.30); HDL CHOLESTEROL 28 mg/dl (40-60); LDL CHOLESTEROL 127 mg/dL (9-159); SGOT/AST 16 IU/L (3-35); SGPT/ALT 19 U/L (12-78); SODIUM 141 mmol/L (136-145); TOTAL PROTEIN 6.9 gm/dL (6.4-8.2); TRIGLYCERIDES 111 mg/dl (<150); VLDL CHOLESTEROL 22 mg/dL (6-40)
[2019-01-05 07:27] LABS: BASO % 0.6 % (0.0-1.0); EOS # 0.2 10*3/uL (0.0-0.4); EOS % 3.5 % (1.0-4.0); HEMATOCRIT 43.7 % (42.0-52.0); HEMOGLOBIN 14.2 g/dl (14.0-18.0); LYMPH # 1.7 10*3/uL (1.3-4.4); LYMPH % 27.5 % (27.0-41.0); MEAN CELL VOLUME 95.6 fl (80.0-94.0); MEAN CORPUSCULAR HGB 31.1 pg (27.0-31.0); MEAN CORPUSCULAR HGB CONC 32.5 g/dl (33.0-37.0); MEAN PLATELET VOLUME 10.3 fl (9.6-12.3); MONO # 0.8 10*3/uL (0.1-1.0); MONO % 12.2 % (3.0-9.0); NEUT # 3.5 10*3/uL (2.3-7.9); NEUT % 55.9 % (47.0-73.0); PLATELET COUNT AUTOMATED 208 10*3/uL (130-400); RED BLOOD COUNT 4.57 10*6/uL (4.50-5.90); RED CELL DISTRI WIDTH 12.8 % (0-14.5); WHITE BLOOD COUNT 6.3 10*3/uL (4.8-10.8)
[2019-01-05 08:00] VITALS: BP 146/70
--- NOTE | 2019-01-05 08:13 | NUR ---
PHYSICAL THERAPY Screen received as well as PT orders will follow for evaluation, thank you Carola Medina PT
--- NOTE | 2019-01-05 08:15 | NUR ---
Treatment Plan meeting was held this a.m. with Dr. Farr, RN, AT, [facility]. Plan for discharge next week. Will wait to see if Patient Mentation Clears over the weekend and whether Dr. Farr will recommend Placement.
--- NOTE | 2019-01-05 08:35 | NUR ---
Nursing screen received and Occupational Therapy referral received. Thank you. Ana Sommers OTR/l
--- NOTE | 2019-01-05 09:43 | NUR ---
PT OFFERED A SHOWER. PT DECLINED THE SHOWER AND STATED HE WANTED TO SMELL. WILL ENCOURAGE PT TO TAKE A SHOWER AT A LATER TIME.
--- NOTE | 2019-01-05 10:40 | NUR ---
[facility] MEDICAL RECORDS FAXED ABOUT ATTEMPT TO OBTAIN HEAD CT SCAN DURING HOSPITAL STAY AT THEIR HOSPITAL. AWAITING RESULTS AT THIS TIME
--- NOTE | 2019-01-05 11:02 | NUR ---
DR SALAZAR AND TEAM ON UNIT TO SEE PATIENT
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
--- NOTE | 2019-01-05 11:55 | NUR ---
AM GROUP/EXERCISE AND BRAIN GAMES PT ATTENDED MORNING GROUP THERAPY AND PARTICIPATED IN ALL ACTIVITIES. PT IS HIGHLY CONFUSED AND WAS UNABLE TO HANDLE SIMPLE DIRECTION. IN EXERCISING, PT SAT ON THE TABLE IN ATTEMPT TO FOLLOW ALONG WHILE EVERYONE ELSE WAS SEATED. PT WAS ASKED WHEN HIS BIRTHDAY WAS AND HE STATED, "I WATCH FOOTBALL". WHEN PARTICIPATING IN THE WORD GAME, PTS ANSWERS WERE OFF AND DID NOT APPLY.
--- NOTE | 2019-01-05 11:59 | NUR ---
P-CONFUSED, AGIATED I-REDIRECTION WITH 1:1 THERAPEUTIC INTERVENTIONS AND PRESENT REALITY. EDUCATE AND ENCOURAGE MEDICATION COMPLIANCE R-PATIENT WITH CONTINUOUS REDIRECTION WITH ADL'S. PATIENT WITH CONTINOUS CUES WHILE SHOWERING SELF AND GETTING DRESSED. PATIENT INCONTINENT OF BOWEL AND BLADDER THIS SHIFT. PATIENT MEDICATION COMPLIANT BUT REFUSED STOOL SOFTENER THIS AM DUE TO HAVING BOWEL MOVEMENTS. PATIENT NEEDING ASSISTANCE TO LOCATE ROOM ON UNIT. PATIENT MOOD IS LABILE AT TIMES. PATIENT WITH EPISODES OF ANGRRY OUTBURST INTERMITTENTLY THROUGHOUT SHIFT. P-CONTINUE TO ENCOURAGE MEDICATION COMPLIANCE, CONTINUE TO PRESENT REALITY, ENCOURAGE GROUP THERAPY WHILE AWAKE
--- NOTE | 2019-01-05 14:42 | NUR ---
Patient was pleasant and cooperative but very confused. Pt's verbal interaction was at a minimum and he was slow to respond, often searching for his words. This promotion writer left a message for pt's friend Tony Sifuentes in order to obtain additional pt information. APS was contacted, and currently pt has a closed case.
[2019-01-05 15:04] LABS: VITAMIN D, 25-HYDROXY 16.9 ng/mL (30-100)
--- NOTE | 2019-01-05 15:27 | NUR ---
PATIENT WITH ATTEMPTS TO LEAVE UNIT. PATIENT LOOKING FOR AN ELEVATOR AND FOR A DOOR TO LEAVE. PATIENT ASKING THIS NURSE IF HE COULD FIND A WAY TO [place]. DR TOLEDO CALLED IN FOR AN UPDATE ON PATIENT. DR TOLEDO STATED " THE NEUROLOGIST THAT HE FOLLOWED AT [facility] WAS DR MONTANEZ AND REQUESTED MORE INFORMATION ABOUT VISITING HOURS. PATIENT AMBULATING UP AND DOWN HALLWAY STATING "WHY" REPEATEDLY
--- NOTE | 2019-01-05 15:51 | NUR ---
DR KABA UPDATED ABOUT LAB RESULTS AND WILL REVIEW FOR NEW ORDERS
--- NOTE | 2019-01-05 16:12 | NUR ---
Shift chart check completed.
--- NOTE | 2019-01-05 17:25 | NUR ---
PATIENT WITH ATTEMPT TO URINATE IN GARBAGE CAN IN DINING AREA. PATIENT REDIRECTED INTO BATHROOM. PATIENT WITH ATTEMPT TO CARRY SILVERWARE OUT OF DINING AREA AND WITH MULTIPLE ATTEMPTS TO REDIRECT PATIENT TO DINING AREA WITH PLASTIC SILVERWARE
[2019-01-05 19:09] VITALS: BP 122/69
--- NOTE | 2019-01-05 21:57 | NUR ---
P-CONFUSION, IRRITABLE I-PROVIDE EMOTIONAL SUPPORT, REDIRECT, REORIENT, MAINTAIN ELOPEMENT PRECAUTIONS, ADMINISTER MEDS, MONITOR SLEEP R-PT IS CONFUSED, ALERT TO PERSON ONLY, REORIENTATION INEFFECTIVE, STATED THE YEAR IS 1967. BRIEFLY RESPONDS TO REDIRECTION. SHORT & AGENT PRODUCER MEMORY DEFICITS VERY NOTICABLE. HAS AMBULATED TO THE END OF THE ROOT NEAR THE EXIT DOOR AGAIN NEEDING REDIRECTION. HAS BEEN INTRUSIVE & WALKED INTO OTHER PTS ROOMS OPENING THE DOOR WHILE OTHER PTS WERE GETTING ASSISTANCE FROM STAFF FOR ADLS. MOOD IS MOSTLY PLEASANT WITH LAUGHTER BUT DOES EXHIBIT IRRITABLE OVERTONES AT TIMES. COMPLIANT WITH HS MEDICATIONS. CONTINUES TO REFUSE FLU SHOT. DID STATE THAT HE IS TIRED. AMBULATING IN THE HALLWAY FREQUENTLY WITH A STEADY GAIT. P-CONTINUE TO MONITOR & PROVIDE PHYSICAL ASSISTANCE & EMOTIONAL SUPPORT
--- NOTE | 2019-01-05 22:15 | NUR ---
24 HR chart check completed.
--- NOTE | 2019-01-05 23:15 | NUR ---
PT HAS BEEN RESTLESS & REQUIRED REDIRECTION. INTRUSIVE TO STAFF & REACHED INTO STAFFS SHIRT POCKET. IRRITABLE & INTIMADATING WHEN REDIRECTED. OFFERED TV, MAGAZINES. PT TOOK MAGAZINES BUT CONCENTRATION VERY SHORT. OFFERED & GIVEN ATIVAN 1 MG PO AT 2308.
--- NOTE | 2019-01-06 00:26 | NUR ---
PT CONTINUES TO BE RESTLESS. BRIEF REDIRECTION. STATED THAT HE CANT SLEEP. NOTED THAT PT HAS URINATED IN HIS GARBAGE CAN IN HIS BATHROOM.
--- NOTE | 2019-01-06 01:07 | NUR ---
PT WENT TO DINING ROOM & HE PASSED RN HE HAD INAPPROPRIATE BEHAVIOR & TOOK MAGAZINE & TAPPED RN ON THE REAR END. PT CONTINUES TO BE RESTLESS. IRRITABLE WHEN REDIRECTED. OFFERED & GIVEN PRN GEODON 10 MG IM @ 0100. STAFF HELD PTS HAND DURING SHOT & IMMEDIATELY AFTER SHOT, PT LEANED FORWARD & ATTEMPTED TO LICK RNS HAND. AGAIN REDIRECTED & INFORMED OF INAPPORPRIATE BEHAVIOR. PT JUST SAT THERE & LAUGHED.
--- NOTE | 2019-01-06 06:41 | NUR ---
SANDRA HAS BEEN EFFECTIVE & PT WATCHED A MOVIE FOR APPROX 20 MIN. DOZED OFF @ 0330 WITH A FEW BRIEF AWAKENINGS WHILE RESTING IN BED. SLEEPING QUIETLY @ 0430.
[2019-01-06 07:50] VITALS: BP 102/55
[2019-01-06 07:52] VITALS: BP 128/63
--- NOTE | 2019-01-06 10:53 | NUR ---
DR SALAZAR AND DR GARCIA ON UNIT TO SEE PATIENT
--- NOTE | 2019-01-06 12:03 | NUR ---
AM GROUP/DISCUSSION/COPING PT SITTING IN QUIET ROOM ALONE AND ENCOURAGED TO ATTEND GROUP 2-3 TIMES BUT NEVER SHOWED UP. PT WILL OCNTINUE TO BE ENCOURAGED TO ATTEND AN DPARTICIPATE IN FUTURE GROUP SESSIONS TO BEST OF PT ABILITY.
--- NOTE | 2019-01-06 15:55 | NUR ---
PM GROUP/LEISURE/FOOTBALL PT IN ATTENDANCE FIRST 10-15 MINUTES OF GROUP. PT LEFT ROOM TO NOT RETURN. PT WILL CONTINUE TO BE ENCOURAGED TO ATTEND AND PARTICIPATE IN FUTURE GROUP SESSIONS TO BEST OF PT ABILITY.
--- NOTE | 2019-01-06 16:11 | NUR ---
P-CONFUSED, AGITATED, INAPPROPRIATE LAUGHTER AND URINATION I-REDIRECTION WITH 1:1 THERAPEUTIC INTERVENTIONS AND PRESENT REALITY. EDUCATE AND ENCOURAGE MEDICATION COMPLIANCE R-PATIENT WITH CONTINUOUS REDIRECTION WITH ADL'S. PATIENT NEEDING CONTINOUS CUES FOR DOING ADL'S. PATIENT URINATING ON FLOOR IN ROOM AND INCONTINENT AT TIMES. PATIENT MEDICATION COMPLIANT. MEDICATION TIMES REVIEWED WITH PATIENT AND PATIENT AWARE TO REMIND THIS NURSE WHEN IT IS TIME TO TAKE HS MEDICATIONS TO HELP WITH MEDICATION COMPLIANCE WHEN DISCHARGED. THIS AM DUE TO HAVING BOWEL MOVEMENTS. PATIENT NEEDING ASSISTANCE TO LOCATE ROOM ON UNIT AT TIMES. PATIENT MOOD IS LABILE AT TIMES. PATIENT WITH EPISODES OF BRIEF ANGRRY OUTBURST INTERMITTENTLY THROUGHOUT SHIFT. P-CONTINUE TO ENCOURAGE MEDICATION COMPLIANCE, CONTINUE TO PRESENT REALITY, ENCOURAGE GROUP THERAPY WHILE AWAKE
--- NOTE | 2019-01-06 17:03 | NUR ---
Shift chart check completed.
[2019-01-06 19:55] VITALS: BP 126/62
--- NOTE | 2019-01-06 22:38 | NUR ---
P-CONFUSED, AGITATED, INAPPROPRIATE LAUGHTER AND URINATION, INTRUSIVE I-REDIRECTION WITH 1:1 THERAPEUTIC INTERVENTIONS AND PRESENT REALITY. EDUCATE AND ENCOURAGE MEDICATION COMPLIANCE R- PATIENT NEEDING CONTINOUS CUES FOR DOING ADL'S. PATIENT URINATING IN INAPPROPRIATE PLACES AND INCONTINENT AT TIMES. FLOOR. PATIENT MEDICATION COMPLIANT. MEDICATION TIMES REVIEWED WITH PATIENT AND PATIENT UNABLE TO ASK FOR THIS HS MEDICATIONS AND PATIENT STATED "I FORGOT". PATIENT NEEDING ASSISTANCE TO LOCATE ROOM ON UNIT AT TIMES. PATIENT MOOD IS LABILE AT TIMES. PATIENT WITH EPISODES OF BRIEF ANGRRY OUTBURST INTERMITTENTLY THROUGHOUT SHIFT. P-CONTINUE TO ENCOURAGE MEDICATION COMPLIANCE, CONTINUE TO PRESENT REALITY, ENCOURAGE GROUP THERAPY WHILE AWAKE
--- NOTE | 2019-01-07 05:32 | NUR ---
PATIENT OBSERVED ON Q 15 MIN CHECKS TO HAVE SLEPT APPROX 2 HOURS THROUGHOUT THE NIGHT WITH MULTIPLE AWAKENINGS NOTED OF PATIENT WALKING THE HALLWAY OR COMING DOWN TO NURSES STATION TO CONVERSE WITH STAFF. NO SIGNS OR SYMPTOMS OF DISTRESS NOTED.
--- NOTE | 2019-01-07 07:48 | NUR ---
Patient resting quietly with no c/o discomfort. Respirations easy and regular. Vital signs stable. No overt distress. GIVENS,JOVI
[2019-01-07 07:54] VITALS: BP 134/53
--- NOTE | 2019-01-07 12:16 | NUR ---
AM GROUP/EXERCISES/BRAIN GAMES PT ATTENDED AND PARTICIPAETD TO BEST OF ABILITY. PT LAUGHING AT RANDOM AND WANDERING IN AND OUT OF ACTIVITY ROOM TOWARDS THE END OF GROUP. PT EXPRESSING CONFUSION OFTEN. PT WILL CONTINUE OT ATTEND AN DPARTICIPATE IN GROUP TO BEST OF PT ABILITY.
--- NOTE | 2019-01-07 18:01 | NUR ---
PT DID NOT COME TO THIS NURSE FOR MEDICATION PASS. PT WAS REMINDED IT WAS MEDICATION TIME. PT PROVIDED WITH A CARD WITH MEDICATION TIMES ON IT. PT INCONTINENT. STAFF ATTEMPTED TO PROVIDE TOILETING CARE. SIMPLE INSTRUCTIONS PROVIDED. ONCE PT REMOVED DEPEND, PT THEN STOOD IN THE MIDDLE OF HIS ROOM WITH NOTHING ON WHILE WAITING ON A NEW DEPEND AND URINATED ON SELF. SIMPLE INSTRUCTIONS GIVEN FOR MEAL SET UP, TOILETING, DRESSING, AND ALL CARE. PLEASANTLY CONFUSED. JOKES AROUND WITH STAFF. WORD FINDING DIFFICULTY NOTED AT TIMES. PT COMES TO THE NURSES STATION AND STARES AT STAFF BEHIND THE DESK UNTIL A STAFF MEMBER INTERACTS WITH HIM. REDIRECTED MULTIPLE TIMES.
[2019-01-07 20:00] VITALS: BP 141/59
--- NOTE | 2019-01-07 23:25 | NUR ---
P-CONFUSED, AGITATED, INAPPROPRIATE LAUGHTER, SEXUALLY INAPPROPRIATE I-REDIRECTION WITH 1:1 THERAPEUTIC INTERVENTIONS AND PRESENT REALITY. EDUCATE AND ENCOURAGE MEDICATION COMPLIANCE R- PATIENT NEEDING CONTINOUS CUES FOR DOING ADL'S. PATIENT MEDICATION COMPLIANT. MEDICATION TIMES REVIEWED WITH PATIENT AND PATIENT UNABLE TO ASK FOR THIS HS MEDICATIONS AND PATIENT STATED "I DON'T KNOW WHAT I WAS SUPPOSE TO ASK ABOUT". PATIENT NEEDING ASSISTANCE TO LOCATE ROOM ON UNIT AT TIMES. PATIENT MOOD IS LABILE AT TIMES. PATIENT WITH EPISODES OF BRIEF IRRITABILITY BUT IS REDIRECTABLE. PATIENT SEXUALLY INAPPROPRIATE WITH STAFF STATING "COME ON LETS GO TO BED. YOU CAN LAY WITH ME". PATIENT REMINDED THAT IT WAS INAPPROPRIATE TO TALK TO STAFF INAPPROPRIATELY. P-CONTINUE TO ENCOURAGE MEDICATION COMPLIANCE, CONTINUE TO PRESENT REALITY, ENCOURAGE GROUP THERAPY WHILE AWAKE
--- NOTE | 2019-01-08 06:00 | NUR ---
PATIENT SLEPT 2-3 HOURS OF INTERRUPTED SLEEP THROUGHOUT SHIFT. Q 15 MINUTE CHECKS MAINTAINED. 24 HR chart check completed.
[2019-01-08 08:04] VITALS: BP 127/62
--- NOTE | 2019-01-08 08:30 | NUR ---
Treatment Plan meeting was held this a.m. with Dr. Farr, RN, AT, [employer] and sausage canner in attendance. Plan for discharge next week. Dr. Farr has recommended Placement, 24 hour supervision. Requests PASRR submitted today.
--- NOTE | 2019-01-08 11:20 | NUR ---
Occupational therapy orders received and OT evaluation completed in full on floor three. Patient precautions include fall risk, decreased cognition, and generalized confusion. Per OT evaluation, OT recommends a SNF. Patient participated in the MOCA, scoring a 3/30, noted in the severe cognitive impairment range. Patient complexity is [place], [address]. Thank you for the referral. Margareth Kirkpatrick, OTR/L
--- NOTE | 2019-01-08 11:47 | NUR ---
AM GROUP PT WAS PRESENT FOR MORNING GROUP THERAPY BUT CHOSE NOT TO PARTICIPATE. PT WAS SITTING ON STACKED CHAIRS AT THE BACK OF THE ROOM AND INVITED TO MOVE UP WITH THE GROUP. PT STATED, "NO, I'M MEDITATING"
--- NOTE | 2019-01-08 12:09 | NUR ---
PT WAS NOTED IN HIS ROOM WITH HIS PANT DOWN AND DEFACATING ON THE FLOOR. PT HAD BM ON THE BACK OF HIS PANTS. PT YELLED AT THIS NURSE JUST CLEAR THE HALLWAY. PT WAS ASSISTED IN THE BATHROOM AND CARE PROVIDED.
--- NOTE | 2019-01-08 14:07 | NUR ---
CALL PLACED TO DR FERNANDEZ ABOUT POSSIBLE DISCHARGE TO [facility]. DR FERNANDEZ STATED TO KEEP MEDICATIONS THE SAME.
[2019-01-08] MEDS ORDERED: EXEL13.31 T (14:33)
[2019-01-08] MEDS ORDERED: NAMENDA10 MG PO (14:34)
[2019-01-08] MEDS ORDERED: BRIN20TA PO (14:34)
[2019-01-08] MEDS ORDERED: NUED1CAP PO (14:36)
--- NOTE | 2019-01-08 14:40 | NUR ---
DR KABA UPDATED ON THE NEED FOR A DISCHARGE ORDER. EXPLAINED TO DR KABA THE ORDERING PHYSICIAN NEEDS TO PLACE THE ORDER. STATED HE WOULD PLACE THE ORDER.
--- NOTE | 2019-01-08 15:12 | NUR ---
PT SIGNED DISCHARGE PAPERWORK. VERBALIZED UNDERSTANDING.
--- NOTE | 2019-01-08 15:14 | NUR ---
CALL PLACED TO [phone] AND SPOKE TO BHARATHI AT [facility]. BHARATHI STATED THERE IS NO BED AVAILABLE AT THIS TIME AND WHEN ONE DOES OPEN THEY WILL GIVE US A CALL. VERIFIED TELEPHONE NUMBER WITH BHARATHI.
--- NOTE | 2019-01-08 15:24 | NUR ---
Pt. to Transfer to [facility] for Malfunctioning Ventriculoperitoneal Shunt. Transportation arranged with [facility] to transport with picker box operator time 4:30 p.m. Nursing Staff notified.
--- NOTE | 2019-01-08 15:25 | NUR ---
RECEIVED A CALL FROM BALDEMAR AT [facility] WITH A BED. PT WILL BE ADMITTED TO ROOM 728-1. BALDEMAR STATED TO CALL [phone] FOR NURSE TO NURSE REPORT.
--- NOTE | 2019-01-08 15:35 | NUR ---
NURSE TO NURSE GIVEN TO JOSHUA RN AT [facility]. ALERTED NURSE OF HOUSEKEEPING ASSISTANT TIME OF 1630.
--- NOTE | 2019-01-08 15:45 | NUR ---
PM GROUP/CARRILLO PT WAS PRESENT FOR SOME OF AFTERNOON GROUP THERAPY BUT IS UNABLE TO PARTICIPATE DUE TO COGNITIVE IMPAIRMENT. PT SITS AND OBSERVES QUIETLY.
--- NOTE | 2019-01-08 16:41 | NUR ---
PT OFF UNIT AT THIS TIME WITH 2 DOOR LINER AND 2 SECURITY GUARDS. VITAL SIGNS STABLE. MOOD STABLE. PLEASANTLY CONFUSED.
== END 2019-01-08 16:41 | disposition short-term general hospital (02) | DRG 885 ==
LOC: ED 10:56 → EDHOLD 15:23 → 3N 15:23
PROVIDERS: Nurse Practitioner Family; ADMIT Psychiatry & Neurology Psychiatry
DX: F33.2 Major depressive disorder, recurrent severe without psychotic features (principal); G91.2 (Idiopathic) normal pressure hydrocephalus; K21.9 Gastro-esophageal reflux disease without esophagitis; D75.89 Other specified diseases of blood and blood-forming organs; I10 Essential (primary) hypertension; E78.5 Hyperlipidemia, unspecified; G89.29 Other chronic pain; M54.9 Dorsalgia, unspecified; F03.90 Unspecified dementia, unspecified severity, without behavioral disturbance, psychotic disturbance, mood disturbance, and anxiety; E87.8 Other disorders of electrolyte and fluid balance, not elsewhere classified; R73.9 Hyperglycemia, unspecified; E55.9 Vitamin D deficiency, unspecified; R41.9 Unspecified symptoms and signs involving cognitive functions and awareness; R41.0 Disorientation, unspecified; Z86.718 Personal history of other venous thrombosis and embolism; Z86.711 Personal history of pulmonary embolism; Z79.899 Other long term (current) drug therapy; Z93.1 Gastrostomy status; Z82.0 Family history of epilepsy and other diseases of the nervous system

== ENCOUNTER 2019-03-27 10:45 | Inpatient (IN) | payer OTHER ==
[~2019-03-27] VITALS: Ht 187.9 cm; Wt 81.2 kg
[~2019-03-27 10:45] MED LIST changes: +BRIN20TA PO; +EXEL13.31 T; +NAMENDA10 MG PO; +NUED1CAP PO
[2019-03-27 10:57] VITALS: BP 93/48
[2019-03-27 11:35] LABS: BILIRUBIN NEGATIVE (NEGATIVE); BLOOD NEGATIVE (NEGATIVE); CLARITY SL CLOUDY (CLEAR); COLOR YELLOW (YELLOW); GLUCOSE NEGATIVE (NEGATIVE); KETONE NEGATIVE (NEGATIVE); LEUKO ESTERASE NEGATIVE (NEGATIVE); NITRITE NEGATIVE (NEGATIVE); UROBILINOGEN 0.2 E.U./dl (0.2-1.0)
[2019-03-27 11:42] LABS: BASO % 0.7 % (0.0-1.0); EOS # 0.2 10*3/uL (0.0-0.4); EOS % 2.5 % (1.0-4.0); HEMATOCRIT 44.9 % (42.0-52.0); HEMOGLOBIN 14.6 g/dl (14.0-18.0); LYMPH # 1.2 10*3/uL (1.3-4.4); LYMPH % 19.6 % (27.0-41.0); MEAN CELL VOLUME 95.3 fl (80.0-94.0); MEAN CORPUSCULAR HGB CONC 32.5 g/dl (33.0-37.0); MEAN PLATELET VOLUME 10.1 fl (9.6-12.3); MONO # 0.7 10*3/uL (0.1-1.0); NEUT # 3.9 10*3/uL (2.3-7.9); NEUT % 65.9 % (47.0-73.0); PLATELET COUNT AUTOMATED 211 10*3/uL (130-400); RED BLOOD COUNT 4.71 10*6/uL (4.50-5.90); RED CELL DISTRI WIDTH 13.2 % (0-14.5)
[2019-03-27 11:43] LABS: BACTERIA 1+; EPITHELIAL CELLS 0-2; MUCOUS 1+; WBC 0-2 wbc/hpf (0-5)
[2019-03-27 11:53] LABS: ACT PARTIAL THROMBO TIME 29.6 SECONDS (20.0-32.1); INTERNATIONAL NORM RATIO 0.9 (2.0-3.5)
[2019-03-27 11:56] LABS: ALBUMIN 3.7 gm/dl (3.1-4.5); ALKALINE PHOSPHATASE 93 U/L (45-117); BUN 23 mg/dl (7-24); CHLORIDE 108 mmol/L (98-107); LIPASE 117 U/L (73-393); POTASSIUM 4.1 mmol/L (3.5-5.1); SGOT/AST 13 IU/L (3-35); SGPT/ALT 30 U/L (12-78); SODIUM 140 mmol/L (136-145); TOTAL PROTEIN 7.9 gm/dL (6.4-8.2)
[2019-03-27 12:01] LABS: TROPONIN I < 0.015 ng/ml (<0.045)
[2019-03-27] MEDS ORDERED: MELATONIN5 M1 PO (12:32)
[2019-03-27] MEDS ORDERED: FAMOTIDINE 1010 MG PO (12:33)
[2019-03-27] MEDS ORDERED: LISINOPRIL20 MG PO (12:34)
[2019-03-27] MEDS ORDERED: OMEPRAZOLE MAGN20 MG PO (12:34)
[2019-03-27] MEDS ORDERED: RIVASTIGMINE TAR6 M1 PO (12:36)
[2019-03-27] MEDS ORDERED: NAMENDA-5 PO (12:38)
[2019-03-27] MEDS ORDERED: TRAZODONE50 MG PO (12:39)
[2019-03-27] MEDS ORDERED: HALOPERIDOL0.5 MG PO (12:42)
[2019-03-27] MEDS ORDERED: VISTARIL50 MG PO (12:42)
[2019-03-27 13:06] VITALS: BP 111/65
[2019-03-27 13:07] VITALS: BP 111/65
[2019-03-27 19:46] VITALS: BP 107/57
[2019-03-28 06:55] LABS: BASO % 0.1 % (0.0-1.0); EOS % 0.2 % (1.0-4.0); HEMATOCRIT 43.3 % (42.0-52.0); HEMOGLOBIN 14.1 g/dl (14.0-18.0); LYMPH # 0.9 10*3/uL (1.3-4.4); MEAN CELL VOLUME 94.5 fl (80.0-94.0); MEAN CORPUSCULAR HGB 30.8 pg (27.0-31.0); MEAN CORPUSCULAR HGB CONC 32.6 g/dl (33.0-37.0); MEAN PLATELET VOLUME 10.3 fl (9.6-12.3); MONO # 0.5 10*3/uL (0.1-1.0); MONO % 5.2 % (3.0-9.0); NEUT # 8.8 10*3/uL (2.3-7.9); NEUT % 85.2 % (47.0-73.0); PLATELET COUNT AUTOMATED 205 10*3/uL (130-400); RED BLOOD COUNT 4.58 10*6/uL (4.50-5.90); RED CELL DISTRI WIDTH 13.2 % (0-14.5); WHITE BLOOD COUNT 10.3 10*3/uL (4.8-10.8)
[2019-03-28 07:11] LABS: ALBUMIN 3.5 gm/dl (3.1-4.5); POTASSIUM 4.3 mmol/L (3.5-5.1); TOTAL PROTEIN 7.6 gm/dL (6.4-8.2)
[2019-03-28 07:17] LABS: CREATININE 1.8 mg/dL (0.70-1.30); THYROID STIM HORMONE (HS) 1.81 uIU/ml (0.358-4.75)
[2019-03-28 07:58] VITALS: BP 111/69
[2019-03-28 08:10] LABS: VITAMIN D, 25-HYDROXY 18.5 ng/mL (30-100)
[2019-03-28 20:00] VITALS: BP 114/60
[2019-03-29 08:17] VITALS: BP 115/63
[2019-03-29 20:00] VITALS: BP 118/65
[2019-03-30 08:11] VITALS: BP 110/63
[2019-03-30 20:00] VITALS: BP 115/88
[2019-03-31 07:48] LABS: BILIRUBIN NEGATIVE (NEGATIVE); BLOOD NEGATIVE (NEGATIVE); CLARITY CLEAR (CLEAR); COLOR YELLOW (YELLOW); GLUCOSE NEGATIVE (NEGATIVE); KETONE 1+ (NEGATIVE); SPECIFIC GRAVITY 1.025 (1.005-1.030)
[2019-03-31 07:49] LABS: LEUKO ESTERASE NEGATIVE (NEGATIVE); NITRITE NEGATIVE (NEGATIVE); RBC 0-2 rbc/hpf (0-2); WBC 0-2 wbc/hpf (0-5)
[2019-03-31 07:50] VITALS: BP 121/67
[2019-03-31 20:00] VITALS: BP 124/71
[2019-04-01 08:00] VITALS: BP 115/75
[2019-04-01 19:50] VITALS: BP 100/63
[2019-04-02 07:44] VITALS: BP 111/67
[2019-04-02 19:48] VITALS: BP 112/56
[2019-04-03 06:50] LABS: POTASSIUM 4.3 mmol/L (3.5-5.1)
[2019-04-03 06:54] LABS: CREATININE 1.56 mg/dL (0.70-1.30)
[2019-04-03 08:00] VITALS: BP 113/64
[2019-04-03 10:01] VITALS: BP 102/66
[2019-04-03 19:36] VITALS: BP 115/60
[2019-04-03 20:20] VITALS: BP 115/60
[2019-04-03 21:45] VITALS: BP 122/70
[2019-04-04 08:00] VITALS: BP 107/66
[2019-04-04 20:00] VITALS: BP 118/70
[2019-04-05 06:47] LABS: ALBUMIN 2.5 gm/dl (3.1-4.5); BUN 28 mg/dl (7-24); CHLORIDE 110 mmol/L (98-107); PHOSPHOROUS 3.4 mg/dL (2.5-4.9); POTASSIUM 4.4 mmol/L (3.5-5.1); SODIUM 142 mmol/L (136-145)
[2019-04-05 08:00] VITALS: BP 128/67
[2019-04-05 19:45] VITALS: BP 126/65
[2019-04-06 08:00] VITALS: BP 122/63
[2019-04-06 20:00] VITALS: BP 120/70
[2019-04-07 07:28] VITALS: BP 104/68
[2019-04-07 20:00] VITALS: BP 109/70
[2019-04-08 08:00] VITALS: BP 110/60; BP 110/70
[2019-04-08 20:00] VITALS: BP 117/65
[2019-04-09 07:42] VITALS: BP 134/67
[2019-04-09 19:51] VITALS: BP 120/73; BP 130/64
[2019-04-10 07:47] VITALS: BP 132/65
[2019-04-10 19:47] VITALS: BP 112/73
[2019-04-11 08:00] VITALS: BP 100/56
[2019-04-11 20:00] VITALS: BP 115/64
[2019-04-12 08:00] VITALS: BP 117/70
[2019-04-12 19:58] VITALS: BP 139/70
[2019-04-12 20:00] VITALS: BP 135/62
[2019-04-13 06:28] LABS: BUN 19 mg/dl (7-24); CHLORIDE 104 mmol/L (98-107); CREATININE 1.09 mg/dL (0.70-1.30); SODIUM 140 mmol/L (136-145)
[2019-04-13] MEDS ORDERED: CITALOPRAM40 MG PO (07:30)
[2019-04-13] MEDS ORDERED: MEMANTINE HCL10 MG PO (07:30)
[2019-04-13] MEDS ORDERED: VITAMIN D3125 MC1 PO (07:30)
[2019-04-13] MEDS ORDERED: DIVALPROEX SOD125 M1 PO (07:30)
[2019-04-13] MEDS ORDERED: RISPERIDONE M-TA1 MG BC (07:30)
[2019-04-13] MEDS ORDERED: TRIHEXYPHENIDYL2 M3 PO (07:30)
[2019-04-13 07:49] VITALS: BP 120/79
[2019-04-13] MEDS ORDERED: XARELTO1 EACH PO (09:10)
== END 2019-04-13 12:27 | DRG 883 ==
LOC: ED 10:45 → 3N 12:30
PROVIDERS: Emergency Medicine; Family Medicine; Internal Medicine; Registered Nurse; ADMIT Psychiatry & Neurology Psychiatry
DX: F63.81 Intermittent explosive disorder (principal); N17.0 Acute kidney failure with tubular necrosis; F03.91 Unspecified dementia, unspecified severity, with behavioral disturbance; F33.9 Major depressive disorder, recurrent, unspecified; M87.00 Idiopathic aseptic necrosis of unspecified bone; I82.532 Chronic embolism and thrombosis of left popliteal vein; E83.41 Hypermagnesemia; D72.810 Lymphocytopenia; D72.821 Monocytosis (symptomatic); E87.8 Other disorders of electrolyte and fluid balance, not elsewhere classified; R73.9 Hyperglycemia, unspecified; F10.21 Alcohol dependence, in remission; I10 Essential (primary) hypertension; E78.00 Pure hypercholesterolemia, unspecified; G89.29 Other chronic pain; M54.9 Dorsalgia, unspecified; K21.9 Gastro-esophageal reflux disease without esophagitis; E78.5 Hyperlipidemia, unspecified; R13.10 Dysphagia, unspecified; Z86.711 Personal history of pulmonary embolism; Z79.01 Long term (current) use of anticoagulants; Z79.899 Other long term (current) drug therapy; Z93.1 Gastrostomy status; Z82.0 Family history of epilepsy and other diseases of the nervous system